=== PATIENT | female | born 1990 | race African-American/Black ===

== ENCOUNTER 2019-02-13 05:05 | Emergency (ER) | payer OTHER ==
[~2019-02-13] VITALS: Ht 172.7 cm; Wt 68.0 kg
[~2019-02-13 05:05] MED LIST: NITR-39 PO
[2019-02-13 06:49] VITALS: BP 131/91
[2019-02-13] MEDS ORDERED: diphenhdrAMINE HCL 50 MG/1 ML VL IM ONE (07:00)
== END 2019-02-13 07:27 | disposition home or self-care (01) ==
LOC: ER 05:05
DX: L23.9 Allergic contact dermatitis, unspecified cause (principal)
CPT/HCPCS: 96372; 99283; J1200

== ENCOUNTER 2019-05-06 08:51 | Emergency (ER) | payer MEDICAID, OTHER ==
[~2019-05-06] VITALS: Ht 172.7 cm; Wt 68.0 kg
[2019-05-06 09:25] VITALS: BP 118/68
[2019-05-06] MEDS ORDERED: SILVER SULFADIAZINE 1 % TOPICAL CREAM 50GM TOP ONE (09:30)
[2019-05-06] MEDS ORDERED: IBUPROFEN 600 MG TAB PO ONE (09:30)
== END 2019-05-06 10:31 | disposition home or self-care (01) ==
LOC: ER 08:53
DX: T23.141A Burn of first degree of multiple right fingers (nail), including thumb, initial encounter (principal); T31.0 Burns involving less than 10% of body surface; X08.8XXA Exposure to other specified smoke, fire and flames, initial encounter; Y93.89 Activity, other specified; Y92.89 Other specified places as the place of occurrence of the external cause; Y99.8 Other external cause status
CPT/HCPCS: 16000

== ENCOUNTER 2020-02-17 08:56 | Emergency (ER) | payer MEDICAID ==
[~2020-02-17] VITALS: Ht 172.7 cm; Wt 70.8 kg
[2020-02-17 09:52] LABS: Urine Bacteria NONE SEEN /hpf (None Seen); Urine Blood 3+ /uL (Negative); Urine Hyaline Cast FEW /lpf (0 - 2); Urine Mucus FEW (None Seen); Urine Specific Gravity 1.024 (1.001-1.035); Urine WBC 5 /hpf (0 - 5)
[2020-02-17 10:32] LABS: Hemoglobin 12.3 g/dL (12.2-16.2); Mean Corpuscular Hemoglobin 29.1 pg (28.0-32.0); Mean Corpuscular Hgb Conc. 32.3 g/dL (32.0-36.0); Mean Corpuscular Volume 89.9 fL (80.0-100.0); Platelet Count (auto) 231 10^3/uL (140-450); Red Blood Cells 4.22 10^6/uL (4.0-5.20); Red Cell Distribution Width 14.9 % (11.8-14.3); White Blood Cell 2.2 10^3/uL (4.4-10.8)
[2020-02-17 10:39] LABS: Albumin 4.2 g/dL (3.4-5.0); Potassium 3.8 mmol/L (3.5-5.1)
[2020-02-17 10:43] LABS: BUN/Creatinine Ratio 12.2; Bilirubin, Total 0.2 mg/dL (0.2-1.0); Total Protein 8.1 g/dL (6.4-8.2)
[2020-02-17 11:02] LABS: Band Neutrophils % (manual) 0; Basophils % (manual) 0 (0.0-2.0); Blast Cells 0; Metamyelocytes % 0; Myelocytes % 0; Promyelocytes % 0; Reactive Lymphocytes 0
[2020-02-17 12:06] LABS: Eosinophils % (manual) 1 (0-7); Lymphocytes % (manual) 69 (10.0-50.0); Monocytes % (manual) 7 (0-12)
[2020-02-17 14:30] VITALS: BP 117/80
== END 2020-02-17 14:48 | disposition home or self-care (01) ==
LOC: ER 08:56
DX: N93.8 Other specified abnormal uterine and vaginal bleeding (principal); R10.2 Pelvic and perineal pain
CPT/HCPCS: 36415; 76830; 76856; 80053; 81001; 84702; 85007; 85027

== ENCOUNTER 2021-01-28 22:49 | Emergency (ER) | payer MEDICAID ==
[~2021-01-28] VITALS: Ht 172.7 cm; Wt 65.8 kg
[2021-01-29 03:10] VITALS: BP 113/60
== END 2021-01-29 05:13 | disposition home or self-care (01) ==
LOC: ER 22:51
DX: S63.682A Other sprain of left thumb, initial encounter (principal); Z98.890 Other specified postprocedural states; W18.39XA Other fall on same level, initial encounter; Y93.89 Activity, other specified; Y92.89 Other specified places as the place of occurrence of the external cause; Y99.8 Other external cause status
CPT/HCPCS: 73140; 81025

== ENCOUNTER 2022-08-31 14:46 | Emergency (ER) | payer MEDICAID ==
[~2022-08-31] VITALS: Ht 172.7 cm; Wt 63.6 kg
[2022-08-31 15:40] VITALS: BP 156/95
[2022-08-31] MEDS ORDERED: KETOROLAC TROMETH 60MG/2ML VIAL IM ONE (15:45)
[2022-08-31] MEDS ORDERED: LORazepam 2MG/ML-1ML VIAL IM ONE (15:45)
[2022-08-31 16:24] LABS: Basophils # (auto) 0 10 ^3/uL (0-0.2); Basophils % (auto) 0.4 % (0.0-2.0); Eosinophils # (auto) 0.1 10 ^3/uL (0-0.8); Eosinophils % (auto) 4.1 % (0.0-7.0); Hematocrit 35.4 % (36.0-46.0); Hemoglobin 11.9 g/dL (12.2-16.2); Lymphocytes # (auto) 1.6 10 ^3/uL (0.4-5.4); Lymphocytes % (auto) 54.6 % (10.0-50.0); Mean Corpuscular Hemoglobin 29.4 pg (28.0-32.0); Mean Corpuscular Hgb Conc. 33.4 g/dL (32.0-36.0); Mean Corpuscular Volume 88.1 fL (80.0-100.0); Monocytes # (auto) 0.3 10 ^3/uL (0-1.3); Monocytes % (auto) 9.1 % (0.0-12.0); Neutrophils # (auto) 0.9 10 ^3/uL (1.6-8.6); Neutrophils % (auto) 31.8 % (37.0-80.0); Nucleated Red Blood Cells % 0.5 %; Red Blood Cells 4.02 10^6/uL (4.0-5.20); Red Cell Distribution Width 15.5 % (11.8-14.3)
[2022-08-31 16:38] LABS: Albumin 4.2 g/dL (3.4-5.0); BUN/Creatinine Ratio 21.9; Calcium 9.2 mg/dL (8.5-10.1); Potassium 3.9 mmol/L (3.5-5.1)
[2022-08-31 16:41] LABS: Bilirubin, Total 0.4 mg/dL (0.2-1.0); Total Protein 7.9 g/dL (6.4-8.2)
== END 2022-08-31 22:03 | disposition home or self-care (01) ==
LOC: ER 14:49
DX: M62.838 Other muscle spasm (principal); F41.9 Anxiety disorder, unspecified; R07.89 Other chest pain; R51.9 Headache, unspecified; Z79.899 Other long term (current) drug therapy
CPT/HCPCS: 36415; 70450; 71046; 80053; 83735; 83880; 84484; 85025; 93005; 96372; 99285; J1885; J2060

== ENCOUNTER 2023-02-04 08:47 | Inpatient (IN) | payer MEDICAID ==
[~2023-02-04] VITALS: Ht 172.7 cm; Wt 75.8 kg
[2023-02-04 09:33] LABS: Basophils # (auto) 0.1 10 ^3/uL (0-0.2); Basophils % (auto) 1.8 % (0.0-2.0); Eosinophils # (auto) 0.1 10 ^3/uL (0-0.8); Eosinophils % (auto) 2.6 % (0.0-7.0); Hematocrit 34.8 % (36.0-46.0); Hemoglobin 11.2 g/dL (12.2-16.2); Lymphocytes # (auto) 1.4 10 ^3/uL (0.4-5.4); Lymphocytes % (auto) 49.5 % (10.0-50.0); Mean Corpuscular Hemoglobin 28.5 pg (28.0-32.0); Mean Corpuscular Hgb Conc. 32.3 g/dL (32.0-36.0); Mean Corpuscular Volume 88.4 fL (80.0-100.0); Monocytes # (auto) 0.1 10 ^3/uL (0-1.3); Monocytes % (auto) 4.1 % (0.0-12.0); Neutrophils # (auto) 1.2 10 ^3/uL (1.6-8.6); Nucleated Red Blood Cells % 0.4 %; Red Blood Cells 3.94 10^6/uL (4.0-5.20); Red Cell Distribution Width 15.3 % (11.8-14.3); White Blood Cell 2.8 10^3/uL (4.4-10.8)
[2023-02-04] MEDS ORDERED: SODIUM CHLORIDE 0.9% 1,000 ML IV ONE ×2 (10:00)
[2023-02-04] MEDS ORDERED: THIAMINE 100mg/ml INJ (200mg/2ml VIAL) IV ONE (10:00)
[2023-02-04 10:33] LABS: Albumin 4.1 g/dL (3.4-5.0); Calcium 8.7 mg/dL (8.5-10.1)
[2023-02-04 12:05] LABS: Potassium 3.7 mmol/L (3.5-5.1)
[2023-02-04 12:12] LABS: BUN/Creatinine Ratio 16.7 (10.0-20.0)
[2023-02-04 12:13] LABS: Bilirubin, Total 0.1 mg/dL (0.2-1.0); Total Protein 8.2 g/dL (6.4-8.2)
[2023-02-04] MEDS ORDERED: LORazepam 2MG/ML-1ML VIAL IV ONE (12:15)
[2023-02-04 13:09] VITALS: PULSE 86; RESP 18; O2SAT 99
[2023-02-04] MEDS ORDERED: NITROGLYCERIN 0.4 MG SL TAB SL PRN (13:15)
[2023-02-04] MEDS ORDERED: MORPHINE SULFATE INJ 2 MG/ml SYRG IV PRN (13:15)
[2023-02-04] MEDS ORDERED: MULTIPLE VITAMIN TAB PO ONE (13:45)
[2023-02-04] MEDS ORDERED: FOLIC ACID 1 MG TAB PO ONE (13:45)
[2023-02-04] MEDS ORDERED: LORazepam 2MG/ML-1ML VIAL IV PRN (13:45)
[2023-02-04 14:07] LABS: Urine Bacteria FEW /hpf (None Seen); Urine Blood Negative /uL (Negative); Urine Clarity HAZY (Clear); Urine Color Yellow (Yellow); Urine Mucus FEW (None Seen); Urine Protein, UAD TRACE (Negative); Urine Specific Gravity 1.019 (1.001-1.035); Urine Urobilinogen Normal (Negative); Urine WBC 10 /hpf (0 - 5); Urine pH 6.5 (5.0-8.0)
[2023-02-04 14:30] LABS: Amphetamine Screen, Urine NEGATIVE (NEGATIVE); Barbiturate Scree,Urine NEGATIVE (NEGATIVE); Benzodiazephine Screen, Urine NEGATIVE (NEGATIVE); Cannabinoid Screen, Urine NEGATIVE (NEGATIVE); Cocaine Screen, Urine NEGATIVE (NEGATIVE); Opiate Scree,Urine NEGATIVE (NEGATIVE); Phencyclidine Screen, Urine NEGATIVE (NEGATIVE)
[2023-02-04] MEDS: SODIUM CHLORIDE 0.9% 1,000 ML IV SCH ×2 (15:00→21:35)
[2023-02-04 19:30] VITALS: PULSE 77; RESP 20; O2SAT 98
[2023-02-04] MEDS: chlordiazePOXIDE HCL 25 MG CAP PO SCH (20:15)
[2023-02-04] MEDS ORDERED: ONDANSETRON HCL 4 MG/2 ML VIAL IV PRN (20:15)
[2023-02-04 23:33] VITALS: BP 119/80; PULSE 62; RESP 16; TEMP 97.9; O2SAT 100
[2023-02-04 23:40] VITALS: BP 119/80; PULSE 62; RESP 16; TEMP 97.9; O2SAT 100
[2023-02-05] VITALS (8 sets, daily range): BP systolic 115–129; BP diastolic 73–93; PULSE 49–73; RESP 14–19; TEMP 97.6–98.4; O2SAT 98–100
[2023-02-05] MEDS: SODIUM CHLORIDE 0.9% 1,000 ML IV SCH ×2 (03:06→10:10)
[2023-02-05] MEDS: chlordiazePOXIDE HCL 25 MG CAP PO SCH ×3 (04:08→23:55)
[2023-02-05 06:56] LABS: Calcium 7.7 mg/dL (8.5-10.1); Potassium 3.8 mmol/L (3.5-5.1)
[2023-02-05 07:01] LABS: BUN/Creatinine Ratio 15.6 (10.0-20.0); Bilirubin, Total 0.6 mg/dL (0.2-1.0); Total Protein 6.3 g/dL (6.4-8.2)
[2023-02-05 07:02] LABS: Basophils # (auto) 0 10 ^3/uL (0-0.2); Basophils % (auto) 1.4 % (0.0-2.0); Eosinophils # (auto) 0.1 10 ^3/uL (0-0.8); Eosinophils % (auto) 2.7 % (0.0-7.0); Hematocrit 31.5 % (36.0-46.0); Hemoglobin 10.2 g/dL (12.2-16.2); Lymphocytes # (auto) 1.6 10 ^3/uL (0.4-5.4); Lymphocytes % (auto) 46.8 % (10.0-50.0); Mean Corpuscular Hemoglobin 28.9 pg (28.0-32.0); Mean Corpuscular Hgb Conc. 32.4 g/dL (32.0-36.0); Mean Corpuscular Volume 89.1 fL (80.0-100.0); Monocytes # (auto) 0.3 10 ^3/uL (0-1.3); Monocytes % (auto) 7.6 % (0.0-12.0); Neutrophils # (auto) 1.4 10 ^3/uL (1.6-8.6); Neutrophils % (auto) 41.5 % (37.0-80.0); Nucleated Red Blood Cells % 0.1 %; Red Blood Cells 3.54 10^6/uL (4.0-5.20); Red Cell Distribution Width 15.3 % (11.8-14.3); White Blood Cell 3.4 10^3/uL (4.4-10.8)
[2023-02-05] MEDS: MULTIPLE VITAMIN TAB PO SCH (08:47)
[2023-02-05] MEDS: FOLIC ACID 1 MG TAB PO SCH (08:47)
[2023-02-05] MEDS ORDERED: THIAMINE HCL 100 MG TAB PO SCH (10:00)
[2023-02-05] MEDS: cefTRIAXone 1GM/50ML D5W 50 ML IV SCH (10:07)
[2023-02-05] MEDS ORDERED: THIAMINE 100mg/ml INJ (200mg/2ml VIAL) IV ONE (15:30)
[2023-02-05] MEDS ORDERED: D5W/SOD CHL 0.45% 1,000 ML IV ONE (16:30)
[2023-02-05] MEDS ORDERED: FOLIC ACID 1 MG, MULTIPLE VITAMIN 10 ML, THIAMINE INJ 100 MG in D5W/SOD CHL 0.45% 1,000 ML INJ ONE (20:45)
[2023-02-06 05:00] VITALS: BP 123/87; PULSE 63; RESP 17; TEMP 98.3; O2SAT 99
[2023-02-06 06:12] LABS: Basophils # (auto) 0 10 ^3/uL (0-0.2); Basophils % (auto) 1.7 % (0.0-2.0); Eosinophils # (auto) 0.1 10 ^3/uL (0-0.8); Eosinophils % (auto) 3.9 % (0.0-7.0); Hematocrit 33.1 % (36.0-46.0); Hemoglobin 10.8 g/dL (12.2-16.2); Lymphocytes # (auto) 1.4 10 ^3/uL (0.4-5.4); Mean Corpuscular Hemoglobin 29.1 pg (28.0-32.0); Mean Corpuscular Hgb Conc. 32.7 g/dL (32.0-36.0); Monocytes # (auto) 0.3 10 ^3/uL (0-1.3); Monocytes % (auto) 9.4 % (0.0-12.0); Nucleated Red Blood Cells % 0.2 %; Red Blood Cells 3.72 10^6/uL (4.0-5.20); Red Cell Distribution Width 14.9 % (11.8-14.3); White Blood Cell 2.8 10^3/uL (4.4-10.8)
[2023-02-06 06:22] LABS: BUN/Creatinine Ratio 14.5 (10.0-20.0); Calcium 8.4 mg/dL (8.5-10.1); Potassium 3.7 mmol/L (3.5-5.1)
[2023-02-06 08:00] VITALS: BP 122/77; PULSE 58; PULSE 60; RESP 18; TEMP 98.6; O2SAT 100
[2023-02-06] MEDS: MULTIPLE VITAMIN TAB PO SCH (08:46)
[2023-02-06] MEDS: cefTRIAXone 1GM/50ML D5W 50 ML IV SCH (08:46)
[2023-02-06] MEDS: FOLIC ACID 1 MG TAB PO SCH (08:46)
[2023-02-06] MEDS ORDERED: THIAMINE 100mg/ml INJ (200mg/2ml VIAL) IV SCH (10:00)
[2023-02-06] MEDS ORDERED: GABA-1250 PO (10:34)
[2023-02-06] MEDS ORDERED: NITR-52 PO (10:34)
[2023-02-06] MEDS: chlordiazePOXIDE HCL 25 MG CAP PO SCH (11:46)
[2023-02-06 13:00] VITALS: BP 107/71; PULSE 74; RESP 12; TEMP 98; O2SAT 100
[2023-02-06 14:58] VITALS: BP 107/71; PULSE 74; RESP 16; TEMP 98; O2SAT 100
[2023-02-06 17:00] VITALS: BP 116/78; PULSE 75; RESP 20; TEMP 98.9; O2SAT 100
[2023-02-06] MEDS ORDERED: chlordiazePOXIDE HCL 25 MG CAP PO SCH (22:00)
[2023-02-08] MEDS ORDERED: chlordiazePOXIDE HCL 25 MG CAP PO SCH (07:00)
== END 2023-02-06 19:20 | disposition home or self-care (01) | DRG 775 ==
LOC: ER 08:47 → TELE 13:14 → TELE-WESTW 23:13
PROVIDERS: ADMIT Internal Medicine; ATTEND Student in an Organized Health Care Education/Training Program
DX: F10.120 Alcohol abuse with intoxication, uncomplicated (principal); R56.9 Unspecified convulsions; F10.139 Alcohol abuse with withdrawal, unspecified; N39.0 Urinary tract infection, site not specified; Y90.9 Presence of alcohol in blood, level not specified; Z83.3 Family history of diabetes mellitus; Z82.49 Family history of ischemic heart disease and other diseases of the circulatory system
CPT/HCPCS: 36415; 70450; 80048; 80053; 80307; 80320; 81001; 81025; 83735; 84100; 85025; 87086; 87088; 87186; 93005; 96361; 96374; G0378; J0696; J2405

== ENCOUNTER 2023-04-29 15:39 | Emergency (ER) | payer MEDICAID, OTHER ==
[~2023-04-29] VITALS: Ht 172.7 cm; Wt 66.8 kg
[~2023-04-29 15:39] MED LIST changes: +GABA-1250 PO; +NITR-52 PO
[2023-04-29 20:18] LABS: Urine Bacteria FEW /hpf (None Seen); Urine Blood Negative /uL (Negative); Urine Clarity HAZY (Clear); Urine Color Yellow (Yellow); Urine Mucus FEW (None Seen); Urine Protein, UAD TRACE (Negative); Urine Specific Gravity 1.026 (1.001-1.035); Urine WBC 8 /hpf (0 - 5)
[2023-04-29] MEDS ORDERED: IBUP1TAB5 PO (21:08)
[2023-04-29] MEDS ORDERED: CYCL-611 PO (21:08)
[2023-04-29 21:45] VITALS: BP 133/85; PULSE 65; RESP 18; TEMP 98.7; O2SAT 100
== END 2023-04-29 21:51 | disposition home or self-care (01) ==
LOC: ER 15:39
DX: S33.5XXA Sprain of ligaments of lumbar spine, initial encounter (principal); S13.9XXA Sprain of joints and ligaments of unspecified parts of neck, initial encounter; S30.1XXA Contusion of abdominal wall, initial encounter; S09.8XXA Other specified injuries of head, initial encounter; Z32.02 Encounter for pregnancy test, result negative; V43.52XA Car driver injured in collision with other type car in traffic accident, initial encounter; Y93.89 Activity, other specified; Y92.488 Other paved roadways as the place of occurrence of the external cause; Y99.8 Other external cause status
CPT/HCPCS: 70450; 72125; 74176; 81001; 81025